=== PATIENT | male | born 1940 | race Caucasian/White ===

== ENCOUNTER 2021-04-15 15:52 | Inpatient (IN) | payer MEDICARE ==
[~2021-04-15] VITALS: Ht 185.4 cm; Wt 90.3 kg
[2021-04-15 17:30] VITALS: BP 108/63
[2021-04-15] MEDS ORDERED: CYCLOBENZAPRINE HCL 10 MG TABLET PO PRN (18:00)
[2021-04-15] MEDS ORDERED: GABAPENTIN 300 MG CAPSULE PO PRN (18:00)
[2021-04-15] MEDS: DOCUSATE SODIUM 100 MG CAPSULE PO SCH (20:09)
[2021-04-15] MEDS: PREGABALIN 75 MG CAPSULE PO SCH (20:09)
[2021-04-15] MEDS: SIMVASTATIN 40 MG TABLET PO SCH (20:10)
[2021-04-15] MEDS: SENNA 187 MG TABLET PO SCH (20:10)
[2021-04-15] MEDS: ACETAMINOPHEN 325 MG TABLET PO SCH (22:00)
[2021-04-16 02:45] VITALS: BP 152/82
[2021-04-16] MEDS: OxyCODONE HCL 10 MG IR TABLET PO PRN ×2 (02:45→09:52)
[2021-04-16] MEDS: ACETAMINOPHEN 325 MG TABLET PO SCH ×3 (06:10→21:18)
[2021-04-16] MEDS: PSYLLIUM SEED ORANGE SF 5.8 GM/PACKET PO SCH (08:46)
[2021-04-16] MEDS: POLYETHYLENE GLYCOL 3350 17 GM PACKET PO SCH (08:46)
[2021-04-16] MEDS: ASPIRIN 81 MG CHEWABLE TABLET PO SCH (08:46)
[2021-04-16] MEDS: PREGABALIN 75 MG CAPSULE PO SCH ×2 (08:47→21:18)
[2021-04-16] MEDS: MULTIVITAMINS WITH MINERALS, THERAPEUTIC TABLET PO SCH (08:48)
[2021-04-16] MEDS: SERTRALINE HCL 100 MG TABLET PO SCH (08:48)
[2021-04-16] MEDS: DOCUSATE SODIUM 100 MG CAPSULE PO SCH ×2 (08:49→21:18)
[2021-04-16] MEDS: BuPROPion HCL XL 150 MG ER TABLET PO SCH (08:49)
[2021-04-16 09:52] VITALS: BP 121/57
[2021-04-16] MEDS: AmLODIPine BESYLATE 5 MG TABLET PO SCH (09:55)
[2021-04-16] MEDS: LOSARTAN POTASSIUM 50 MG TABLET PO SCH (09:56)
[2021-04-16 12:01] LABS: HEMATOCRIT 26.8 % (41-53); HEMOGLOBIN 8.9 g/dL (13.5-17.5); MEAN CORPUSCULAR VOLUME 94 fL (80-100); RED BLOOD CELL COUNT(AUTO) 2.86 MIL/uL (4.50-5.90)
[2021-04-16 12:02] LABS: BASOPHILS % (AUTO) 0.7 % (0.0-2.0); EOSINOPHILS % (AUTO) 2.6 % (1.0-6.0); LYMPHOCYTES # (AUTO) 0.9 K/uL (1.0-4.8); LYMPHOCYTES % (AUTO) 12.2 % (22.0-44.0); MEAN CORPUSCULAR HEMOGLOBIN 31.3 pg (26.0-34.0); MEAN CORPUSCULAR HGB CONC 33.3 G/dL (31.0-37.0); MONOCYTES # (AUTO) 0.6 K/uL (0.1-1.0); MONOCYTES % (AUTO) 8.5 % (2.0-9.0); NEUTROPHILS # (AUTO) 5.4 K/uL (1.8-7.7); PLATELET COUNT (AUTO) 261 K/uL (150-450); RED CELL DISTRIBUTION WIDTH 13.7 % (11.5-14.5)
[2021-04-16 12:15] VITALS: BP 96/54
[2021-04-16 12:21] LABS: ALANINE AMINOTRANSFERASE 29 U/L (12-78); ALBUMIN 2.6 g/dL (3.4-5.0); ALKALINE PHOSPHATASE 83 U/L (46-116); ANION GAP 6 mmol/L (8-16); ASPARTATE AMINOTRANSFERASE 31 U/L (15-37); BILIRUBIN,TOTAL 0.6 mg/dL (0.1-1.0); CALCIUM, TOTAL 8.3 mg/dL (8.8-10.5); CARBON DIOXIDE 26 mmol/L (22-29); CHLORIDE 106 mmol/L (98-107); CREATININE 0.89 mg/dL (0.60-1.30); GLUCOSE,RANDOM 85 mg/dL (70-110); POTASSIUM 3.8 mmol/L (3.5-5.1); SODIUM SERUM 138 mmol/L (136-145); TOTAL PROTEIN, SERUM 5.7 g/dL (6.4-8.2); UREA NITROGEN, BLOOD 17 mg/dL (7-18)
[2021-04-16 12:25] LABS: GLOMERULAR FILTR. RATE CALC > 60 mL/min (>60)
[2021-04-16 12:30] VITALS: BP 114/52
[2021-04-16 16:41] VITALS: BP 105/50
[2021-04-16] MEDS: SENNA 187 MG TABLET PO SCH (21:18)
[2021-04-16] MEDS: SIMVASTATIN 40 MG TABLET PO SCH (21:18)
[2021-04-17 00:30] VITALS: BP 153/86
[2021-04-17] MEDS: ACETAMINOPHEN 325 MG TABLET PO SCH ×3 (05:13→21:12)
[2021-04-17 08:47] VITALS: BP 152/91
[2021-04-17] MEDS: POLYETHYLENE GLYCOL 3350 17 GM PACKET PO SCH (09:00)
[2021-04-17] MEDS: LOSARTAN POTASSIUM 50 MG TABLET PO SCH (09:12)
[2021-04-17] MEDS: ENOXAPARIN SODIUM 40 MG/0.4 ML PF SYRINGE SQ SCH (09:12)
[2021-04-17] MEDS: PSYLLIUM SEED ORANGE SF 5.8 GM/PACKET PO SCH (09:12)
[2021-04-17] MEDS: DOCUSATE SODIUM 100 MG CAPSULE PO SCH ×2 (09:12→20:35)
[2021-04-17] MEDS: MULTIVITAMINS WITH MINERALS, THERAPEUTIC TABLET PO SCH (09:13)
[2021-04-17] MEDS: SERTRALINE HCL 100 MG TABLET PO SCH (09:13)
[2021-04-17] MEDS: AmLODIPine BESYLATE 5 MG TABLET PO SCH (09:13)
[2021-04-17] MEDS: ASPIRIN 81 MG CHEWABLE TABLET PO SCH (09:13)
[2021-04-17] MEDS: PREGABALIN 75 MG CAPSULE PO SCH ×2 (09:13→20:35)
[2021-04-17] MEDS: BuPROPion HCL XL 150 MG ER TABLET PO SCH (09:13)
[2021-04-17] MEDS: OxyCODONE HCL 5 MG IR TABLET PO PRN (10:06)
[2021-04-17 16:36] VITALS: BP 119/61
[2021-04-17] MEDS: SIMVASTATIN 40 MG TABLET PO SCH (20:35)
[2021-04-17] MEDS: SENNA 187 MG TABLET PO SCH (20:35)
[2021-04-18 03:30] VITALS: BP 128/67
[2021-04-18] MEDS: ACETAMINOPHEN 325 MG TABLET PO SCH ×3 (05:54→21:00)
[2021-04-18] MEDS: OxyCODONE HCL 10 MG IR TABLET PO PRN (07:36)
[2021-04-18 08:00] VITALS: BP 143/67
[2021-04-18] MEDS: LOSARTAN POTASSIUM 50 MG TABLET PO SCH (10:05)
[2021-04-18] MEDS: ASPIRIN 81 MG CHEWABLE TABLET PO SCH (10:05)
[2021-04-18] MEDS: DOCUSATE SODIUM 100 MG CAPSULE PO SCH ×2 (10:05→20:51)
[2021-04-18] MEDS: MULTIVITAMINS WITH MINERALS, THERAPEUTIC TABLET PO SCH (10:06)
[2021-04-18] MEDS: POLYETHYLENE GLYCOL 3350 17 GM PACKET PO SCH (10:06)
[2021-04-18] MEDS: SERTRALINE HCL 100 MG TABLET PO SCH (10:06)
[2021-04-18] MEDS: BuPROPion HCL XL 150 MG ER TABLET PO SCH (10:06)
[2021-04-18] MEDS: AmLODIPine BESYLATE 5 MG TABLET PO SCH (10:06)
[2021-04-18] MEDS: PSYLLIUM SEED ORANGE SF 5.8 GM/PACKET PO SCH (10:06)
[2021-04-18] MEDS: PREGABALIN 75 MG CAPSULE PO SCH ×2 (10:06→20:52)
[2021-04-18] MEDS: ENOXAPARIN SODIUM 40 MG/0.4 ML PF SYRINGE SQ SCH (10:07)
[2021-04-18 16:10] VITALS: BP 112/56
[2021-04-18] MEDS: SIMVASTATIN 40 MG TABLET PO SCH (20:52)
[2021-04-18] MEDS: SENNA 187 MG TABLET PO SCH (20:52)
[2021-04-19] MEDS: OxyCODONE HCL 5 MG IR TABLET PO PRN (02:55)
[2021-04-19 03:00] VITALS: BP 157/85
[2021-04-19] MEDS ORDERED: ASPI-1450 PO (03:21)
[2021-04-19] MEDS ORDERED: LOSA50TA37 PO (03:21)
[2021-04-19] MEDS ORDERED: PREG75 PO (03:21)
[2021-04-19] MEDS ORDERED: SERT-162 PO (03:21)
[2021-04-19] MEDS ORDERED: SIMV-261 PO (03:21)
[2021-04-19] MEDS ORDERED: AMLO-257 PO (03:21)
[2021-04-19] MEDS ORDERED: METO25 PO (03:21)
[2021-04-19] MEDS: ACETAMINOPHEN 325 MG TABLET PO SCH ×4 (05:23→21:43)
[2021-04-19] MEDS: OxyCODONE HCL 10 MG IR TABLET PO PRN (07:18)
[2021-04-19 07:30] VITALS: BP 160/78
[2021-04-19] MEDS: ENOXAPARIN SODIUM 40 MG/0.4 ML PF SYRINGE SQ SCH (08:18)
[2021-04-19] MEDS: LOSARTAN POTASSIUM 50 MG TABLET PO SCH (08:19)
[2021-04-19] MEDS: MULTIVITAMINS WITH MINERALS, THERAPEUTIC TABLET PO SCH (08:19)
[2021-04-19] MEDS: DOCUSATE SODIUM 100 MG CAPSULE PO SCH ×2 (08:19→20:36)
[2021-04-19] MEDS: PREGABALIN 75 MG CAPSULE PO SCH ×2 (08:19→20:41)
[2021-04-19] MEDS: SERTRALINE HCL 100 MG TABLET PO SCH (08:19)
[2021-04-19] MEDS: AmLODIPine BESYLATE 5 MG TABLET PO SCH (08:20)
[2021-04-19] MEDS: ASPIRIN 81 MG CHEWABLE TABLET PO SCH (08:21)
[2021-04-19] MEDS: PSYLLIUM SEED ORANGE SF 5.8 GM/PACKET PO SCH (08:21)
[2021-04-19 09:00] VITALS: BP 89/51
[2021-04-19] MEDS: POLYETHYLENE GLYCOL 3350 17 GM PACKET PO SCH (09:00)
[2021-04-19] MEDS: BuPROPion HCL XL 150 MG ER TABLET PO SCH (09:43)
[2021-04-19 10:30] VITALS: BP 109/57
[2021-04-19 16:00] VITALS: BP 130/64
[2021-04-19] MEDS: SENNA 187 MG TABLET PO SCH (20:36)
[2021-04-19] MEDS: ETHYL ALCOHOL 62% ANTISEPTIC NASAL INHALANT 0.6 ML AMPUL NASAL SCH (20:44)
[2021-04-19] MEDS: SIMVASTATIN 40 MG TABLET PO SCH (21:43)
[2021-04-20 03:18] VITALS: BP 148/62
[2021-04-20] MEDS: OxyCODONE HCL 10 MG IR TABLET PO PRN ×2 (03:18→08:41)
[2021-04-20] MEDS: ACETAMINOPHEN 325 MG TABLET PO SCH ×3 (05:46→20:43)
[2021-04-20] MEDS: BISACODYL 10 MG RECTAL RECTAL SUPPOSITORY PR PRN (05:46)
[2021-04-20] MEDS: ETHYL ALCOHOL 62% ANTISEPTIC NASAL INHALANT 0.6 ML AMPUL NASAL SCH ×2 (08:38→20:37)
[2021-04-20] MEDS: SERTRALINE HCL 100 MG TABLET PO SCH (08:39)
[2021-04-20] MEDS: BuPROPion HCL XL 150 MG ER TABLET PO SCH (08:39)
[2021-04-20] MEDS: LOSARTAN POTASSIUM 50 MG TABLET PO SCH (08:39)
[2021-04-20] MEDS: PREGABALIN 75 MG CAPSULE PO SCH ×2 (08:40→20:39)
[2021-04-20] MEDS: ENOXAPARIN SODIUM 40 MG/0.4 ML PF SYRINGE SQ SCH (08:40)
[2021-04-20] MEDS: MULTIVITAMINS WITH MINERALS, THERAPEUTIC TABLET PO SCH (08:40)
[2021-04-20] MEDS: ASPIRIN 81 MG CHEWABLE TABLET PO SCH (08:40)
[2021-04-20 08:41] VITALS: BP 123/73
[2021-04-20] MEDS: DOCUSATE SODIUM 100 MG CAPSULE PO SCH ×2 (08:47→20:39)
[2021-04-20] MEDS: PSYLLIUM SEED ORANGE SF 5.8 GM/PACKET PO SCH (08:48)
[2021-04-20] MEDS: POLYETHYLENE GLYCOL 3350 17 GM PACKET PO SCH (08:48)
[2021-04-20 17:00] VITALS: BP 119/64
[2021-04-20] MEDS: SENNA 187 MG TABLET PO SCH (20:39)
[2021-04-20] MEDS: SIMVASTATIN 40 MG TABLET PO SCH (20:40)
[2021-04-20] MEDS: METOPROLOL SUCCINATE 25 MG ER TABLET PO SCH (20:49)
[2021-04-21 00:34] VITALS: BP 146/76
[2021-04-21] MEDS: OxyCODONE HCL 10 MG IR TABLET PO PRN ×3 (04:51→23:23)
[2021-04-21] MEDS: ACETAMINOPHEN 325 MG TABLET PO SCH ×3 (05:44→21:07)
[2021-04-21 07:05] VITALS: BP 154/79
[2021-04-21] MEDS: ENOXAPARIN SODIUM 40 MG/0.4 ML PF SYRINGE SQ SCH (07:31)
[2021-04-21] MEDS: LOSARTAN POTASSIUM 50 MG TABLET PO SCH (07:31)
[2021-04-21] MEDS: PSYLLIUM SEED ORANGE SF 5.8 GM/PACKET PO SCH (07:31)
[2021-04-21] MEDS: PREGABALIN 75 MG CAPSULE PO SCH ×2 (07:31→21:07)
[2021-04-21] MEDS: ETHYL ALCOHOL 62% ANTISEPTIC NASAL INHALANT 0.6 ML AMPUL NASAL SCH ×2 (07:31→21:06)
[2021-04-21] MEDS: DOCUSATE SODIUM 100 MG CAPSULE PO SCH ×2 (07:32→21:06)
[2021-04-21] MEDS: POLYETHYLENE GLYCOL 3350 17 GM PACKET PO SCH (07:32)
[2021-04-21] MEDS: ASPIRIN 81 MG CHEWABLE TABLET PO SCH (07:33)
[2021-04-21] MEDS: SERTRALINE HCL 100 MG TABLET PO SCH (07:33)
[2021-04-21] MEDS: MULTIVITAMINS WITH MINERALS, THERAPEUTIC TABLET PO SCH (07:33)
[2021-04-21] MEDS: BuPROPion HCL XL 150 MG ER TABLET PO SCH (07:33)
[2021-04-21 08:52] VITALS: BP 106/57
[2021-04-21 16:40] VITALS: BP 110/59
[2021-04-21] MEDS: OxyCODONE HCL 5 MG IR TABLET PO PRN (18:21)
[2021-04-21] MEDS: SENNA 187 MG TABLET PO SCH (21:05)
[2021-04-21] MEDS: MELATONIN 5 MG TABLET PO PRN (21:06)
[2021-04-21] MEDS: SIMVASTATIN 40 MG TABLET PO SCH (21:06)
[2021-04-21] MEDS: METOPROLOL SUCCINATE 25 MG ER TABLET PO SCH (21:07)
[2021-04-22 00:18] VITALS: BP 149/80
[2021-04-22] MEDS: OxyCODONE HCL 10 MG IR TABLET PO PRN ×3 (03:22→23:25)
[2021-04-22] MEDS: BISACODYL 10 MG RECTAL RECTAL SUPPOSITORY PR PRN (05:42)
[2021-04-22] MEDS: ACETAMINOPHEN 325 MG TABLET PO SCH ×3 (05:42→21:04)
[2021-04-22 08:07] VITALS: BP 157/68
[2021-04-22] MEDS: DOCUSATE SODIUM 100 MG CAPSULE PO SCH ×2 (08:07→20:29)
[2021-04-22] MEDS: ASPIRIN 81 MG CHEWABLE TABLET PO SCH (08:07)
[2021-04-22] MEDS: SERTRALINE HCL 100 MG TABLET PO SCH (08:07)
[2021-04-22] MEDS: PREGABALIN 75 MG CAPSULE PO SCH (08:07)
[2021-04-22] MEDS: MULTIVITAMINS WITH MINERALS, THERAPEUTIC TABLET PO SCH (08:07)
[2021-04-22] MEDS: ETHYL ALCOHOL 62% ANTISEPTIC NASAL INHALANT 0.6 ML AMPUL NASAL SCH ×2 (08:08→20:28)
[2021-04-22] MEDS: POLYETHYLENE GLYCOL 3350 17 GM PACKET PO SCH (08:08)
[2021-04-22] MEDS: BuPROPion HCL XL 150 MG ER TABLET PO SCH (08:08)
[2021-04-22] MEDS: PSYLLIUM SEED ORANGE SF 5.8 GM/PACKET PO SCH (08:08)
[2021-04-22] MEDS: ENOXAPARIN SODIUM 40 MG/0.4 ML PF SYRINGE SQ SCH (08:08)
[2021-04-22] MEDS: LOSARTAN POTASSIUM 50 MG TABLET PO SCH (08:08)
[2021-04-22] MEDS: GABAPENTIN 300 MG CAPSULE PO SCH ×2 (15:03→20:29)
[2021-04-22 16:12] VITALS: BP 112/54
[2021-04-22] MEDS: METOPROLOL SUCCINATE 25 MG ER TABLET PO SCH (20:29)
[2021-04-22] MEDS: SIMVASTATIN 40 MG TABLET PO SCH (20:29)
[2021-04-22] MEDS: SENNA 187 MG TABLET PO SCH (20:29)
[2021-04-22] MEDS: MELATONIN 5 MG TABLET PO PRN (20:29)
[2021-04-22 20:45] VITALS: BP 124/58
[2021-04-22 23:25] VITALS: BP 124/73
[2021-04-23] MEDS: ACETAMINOPHEN 325 MG TABLET PO SCH ×3 (05:57→21:16)
[2021-04-23 07:32] VITALS: BP 165/82
[2021-04-23] MEDS: OxyCODONE HCL 10 MG IR TABLET PO PRN ×2 (07:32→23:06)
[2021-04-23 08:32] VITALS: BP 116/78
[2021-04-23] MEDS: PSYLLIUM SEED ORANGE SF 5.8 GM/PACKET PO SCH ×2 (09:00→09:12)
[2021-04-23] MEDS: BuPROPion HCL XL 150 MG ER TABLET PO SCH (09:11)
[2021-04-23] MEDS: SERTRALINE HCL 100 MG TABLET PO SCH (09:11)
[2021-04-23] MEDS: ENOXAPARIN SODIUM 40 MG/0.4 ML PF SYRINGE SQ SCH (09:11)
[2021-04-23] MEDS: ASPIRIN 81 MG CHEWABLE TABLET PO SCH (09:11)
[2021-04-23] MEDS: LOSARTAN POTASSIUM 50 MG TABLET PO SCH (09:11)
[2021-04-23] MEDS: MULTIVITAMINS WITH MINERALS, THERAPEUTIC TABLET PO SCH (09:11)
[2021-04-23] MEDS: GABAPENTIN 300 MG CAPSULE PO SCH ×3 (09:12→21:17)
[2021-04-23] MEDS: ETHYL ALCOHOL 62% ANTISEPTIC NASAL INHALANT 0.6 ML AMPUL NASAL SCH ×2 (09:12→21:18)
[2021-04-23] MEDS: DOCUSATE SODIUM 100 MG CAPSULE PO SCH ×2 (09:16→21:16)
[2021-04-23] MEDS: POLYETHYLENE GLYCOL 3350 17 GM PACKET PO SCH (09:16)
[2021-04-23 16:14] VITALS: BP 123/65
[2021-04-23 21:00] VITALS: BP 169/78
[2021-04-23] MEDS: SIMVASTATIN 40 MG TABLET PO SCH (21:16)
[2021-04-23] MEDS: METOPROLOL SUCCINATE 25 MG ER TABLET PO SCH (21:17)
[2021-04-23] MEDS: SENNA 187 MG TABLET PO SCH (21:17)
[2021-04-23] MEDS: MELATONIN 5 MG TABLET PO PRN (21:21)
[2021-04-24] VITALS (7 sets, daily range): BP systolic 136–190; BP diastolic 59–94
[2021-04-24] MEDS: ACETAMINOPHEN 325 MG TABLET PO SCH ×3 (05:33→21:11)
[2021-04-24] MEDS: OxyCODONE HCL 10 MG IR TABLET PO PRN ×2 (08:11→23:29)
[2021-04-24] MEDS: ENOXAPARIN SODIUM 40 MG/0.4 ML PF SYRINGE SQ SCH (08:48)
[2021-04-24] MEDS: LOSARTAN POTASSIUM 50 MG TABLET PO SCH (08:48)
[2021-04-24] MEDS: SERTRALINE HCL 100 MG TABLET PO SCH (08:48)
[2021-04-24] MEDS: ETHYL ALCOHOL 62% ANTISEPTIC NASAL INHALANT 0.6 ML AMPUL NASAL SCH ×2 (08:48→20:07)
[2021-04-24] MEDS: BuPROPion HCL XL 150 MG ER TABLET PO SCH (08:48)
[2021-04-24] MEDS: MULTIVITAMINS WITH MINERALS, THERAPEUTIC TABLET PO SCH (08:49)
[2021-04-24] MEDS: ASPIRIN 81 MG CHEWABLE TABLET PO SCH (08:49)
[2021-04-24] MEDS: GABAPENTIN 300 MG CAPSULE PO SCH ×3 (08:52→20:08)
[2021-04-24] MEDS: POLYETHYLENE GLYCOL 3350 17 GM PACKET PO SCH ×2 (08:52→09:00)
[2021-04-24] MEDS: PSYLLIUM SEED ORANGE SF 5.8 GM/PACKET PO SCH (09:00)
[2021-04-24] MEDS: DOCUSATE SODIUM 100 MG CAPSULE PO SCH ×2 (09:00→20:07)
[2021-04-24 09:16] LABS: BASOPHILS % (AUTO) 1.2 % (0.0-2.0); EOSINOPHILS % (AUTO) 2.2 % (1.0-6.0); HEMATOCRIT 32.3 % (41-53); HEMOGLOBIN 10.8 g/dL (13.5-17.5); LYMPHOCYTES # (AUTO) 0.7 K/uL (1.0-4.8); LYMPHOCYTES % (AUTO) 9.6 % (22.0-44.0); MEAN CORPUSCULAR HGB CONC 33.3 G/dL (31.0-37.0); MEAN CORPUSCULAR VOLUME 93 fL (80-100); MONOCYTES # (AUTO) 0.5 K/uL (0.1-1.0); MONOCYTES % (AUTO) 6.8 % (2.0-9.0); NEUTROPHILS # (AUTO) 5.8 K/uL (1.8-7.7); NEUTROPHILS % (AUTO) 80.2 % (40.0-70.0); PLATELET COUNT (AUTO) 501 K/uL (150-450); RED BLOOD CELL COUNT(AUTO) 3.47 MIL/uL (4.50-5.90); RED CELL DISTRIBUTION WIDTH 14.2 % (11.5-14.5)
[2021-04-24 09:26] LABS: ANION GAP 10 mmol/L (8-16); CALCIUM, TOTAL 9.4 mg/dL (8.8-10.5); CARBON DIOXIDE 25 mmol/L (22-29); CHLORIDE 103 mmol/L (98-107); GLUCOSE,RANDOM 95 mg/dL (70-110); POTASSIUM 4.2 mmol/L (3.5-5.1); SODIUM SERUM 138 mmol/L (136-145); UREA NITROGEN, BLOOD 18 mg/dL (7-18)
[2021-04-24 09:30] LABS: GLOMERULAR FILTR. RATE CALC > 60 mL/min (>60)
[2021-04-24] MEDS: SIMVASTATIN 40 MG TABLET PO SCH (20:07)
[2021-04-24] MEDS: SENNA 187 MG TABLET PO SCH (20:07)
[2021-04-24] MEDS: METOPROLOL SUCCINATE 25 MG ER TABLET PO SCH (20:07)
[2021-04-24] MEDS: MELATONIN 5 MG TABLET PO PRN (23:29)
[2021-04-25] VITALS (8 sets, daily range): BP systolic 120–180; BP diastolic 67–92
[2021-04-25] MEDS: ACETAMINOPHEN 325 MG TABLET PO SCH ×3 (05:47→22:04)
[2021-04-25] MEDS: ENOXAPARIN SODIUM 40 MG/0.4 ML PF SYRINGE SQ SCH (09:08)
[2021-04-25] MEDS: POLYETHYLENE GLYCOL 3350 17 GM PACKET PO SCH (09:08)
[2021-04-25] MEDS: SERTRALINE HCL 100 MG TABLET PO SCH (09:09)
[2021-04-25] MEDS: ASPIRIN 81 MG CHEWABLE TABLET PO SCH (09:09)
[2021-04-25] MEDS: PSYLLIUM SEED ORANGE SF 5.8 GM/PACKET PO SCH (09:09)
[2021-04-25] MEDS: BuPROPion HCL XL 150 MG ER TABLET PO SCH (09:09)
[2021-04-25] MEDS: DOCUSATE SODIUM 100 MG CAPSULE PO SCH ×2 (09:09→20:13)
[2021-04-25] MEDS: LOSARTAN POTASSIUM 50 MG TABLET PO SCH (09:10)
[2021-04-25] MEDS: MULTIVITAMINS WITH MINERALS, THERAPEUTIC TABLET PO SCH (09:10)
[2021-04-25] MEDS: GABAPENTIN 300 MG CAPSULE PO SCH ×3 (09:10→20:13)
[2021-04-25] MEDS: ETHYL ALCOHOL 62% ANTISEPTIC NASAL INHALANT 0.6 ML AMPUL NASAL SCH ×2 (09:23→20:13)
[2021-04-25] MEDS: OxyCODONE HCL 5 MG IR TABLET PO PRN (15:09)
[2021-04-25] MEDS: METOPROLOL SUCCINATE 25 MG ER TABLET PO SCH (20:13)
[2021-04-25] MEDS: SENNA 187 MG TABLET PO SCH (20:13)
[2021-04-25] MEDS: SIMVASTATIN 40 MG TABLET PO SCH (20:13)
[2021-04-25] MEDS: OxyCODONE HCL 10 MG IR TABLET PO PRN (23:32)
[2021-04-25] MEDS: MELATONIN 5 MG TABLET PO PRN (23:32)
[2021-04-26] MEDS ORDERED: GABA-1181 PO (04:12)
[2021-04-26] MEDS ORDERED: BUPR-93 PO (04:12)
[2021-04-26] MEDS ORDERED: BUPR-121 PO (04:12)
[2021-04-26] MEDS ORDERED: METO25XL PO (04:13)
[2021-04-26] MEDS ORDERED: DOCU-270 PO (04:15)
[2021-04-26] MEDS ORDERED: MULT-413 PO (04:15)
[2021-04-26] MEDS: ACETAMINOPHEN 325 MG TABLET PO SCH (06:02)
[2021-04-26 08:01] VITALS: BP 149/90
[2021-04-26] MEDS: POLYETHYLENE GLYCOL 3350 17 GM PACKET PO SCH (08:45)
[2021-04-26] MEDS: MULTIVITAMINS WITH MINERALS, THERAPEUTIC TABLET PO SCH (08:45)
[2021-04-26] MEDS: ENOXAPARIN SODIUM 40 MG/0.4 ML PF SYRINGE SQ SCH (08:45)
[2021-04-26] MEDS: ETHYL ALCOHOL 62% ANTISEPTIC NASAL INHALANT 0.6 ML AMPUL NASAL SCH ×2 (08:46→21:10)
[2021-04-26] MEDS: ASPIRIN 81 MG CHEWABLE TABLET PO SCH (08:46)
[2021-04-26] MEDS: BuPROPion HCL XL 150 MG ER TABLET PO SCH (08:46)
[2021-04-26] MEDS: GABAPENTIN 300 MG CAPSULE PO SCH ×3 (08:46→21:09)
[2021-04-26] MEDS: PSYLLIUM SEED ORANGE SF 5.8 GM/PACKET PO SCH (08:46)
[2021-04-26] MEDS: LOSARTAN POTASSIUM 50 MG TABLET PO SCH (08:46)
[2021-04-26] MEDS: DOCUSATE SODIUM 100 MG CAPSULE PO SCH ×2 (08:46→21:10)
[2021-04-26] MEDS: SERTRALINE HCL 100 MG TABLET PO SCH (08:47)
[2021-04-26] MEDS: OxyCODONE HCL 10 MG IR TABLET PO PRN (09:04)
[2021-04-26] MEDS ORDERED: ACETAMINOPHEN 325 MG TABLET PO PRN (14:00)
[2021-04-26 16:33] VITALS: BP 104/51
[2021-04-26 21:00] VITALS: BP 125/69
[2021-04-26] MEDS ORDERED: GABAPENTIN 400 MG CAPSULE PO SCH (21:00)
[2021-04-26] MEDS ORDERED: GABAPENTIN 300 MG CAPSULE PO SCH (21:00)
[2021-04-26] MEDS: SENNA 187 MG TABLET PO SCH (21:09)
[2021-04-26] MEDS: SIMVASTATIN 40 MG TABLET PO SCH (21:09)
[2021-04-26] MEDS: METOPROLOL SUCCINATE 25 MG ER TABLET PO SCH (21:10)
[2021-04-27] MEDS: GABAPENTIN 300 MG CAPSULE PO SCH ×4 (01:42→20:22)
[2021-04-27 02:13] VITALS: BP 151/84
[2021-04-27] MEDS: GABAPENTIN 300 MG CAPSULE PO PRN (02:13)
[2021-04-27] MEDS: OxyCODONE HCL 10 MG IR TABLET PO PRN ×2 (03:19→09:01)
[2021-04-27] MEDS: BuPROPion HCL XL 150 MG ER TABLET PO SCH (08:15)
[2021-04-27] MEDS: ASPIRIN 81 MG CHEWABLE TABLET PO SCH (08:15)
[2021-04-27] MEDS: MULTIVITAMINS WITH MINERALS, THERAPEUTIC TABLET PO SCH (08:15)
[2021-04-27] MEDS: DOCUSATE SODIUM 100 MG CAPSULE PO SCH ×2 (08:15→20:21)
[2021-04-27] MEDS: PSYLLIUM SEED ORANGE SF 5.8 GM/PACKET PO SCH (08:16)
[2021-04-27] MEDS: LOSARTAN POTASSIUM 50 MG TABLET PO SCH (08:16)
[2021-04-27] MEDS: ENOXAPARIN SODIUM 40 MG/0.4 ML PF SYRINGE SQ SCH (08:16)
[2021-04-27] MEDS: SERTRALINE HCL 100 MG TABLET PO SCH (08:16)
[2021-04-27] MEDS: POLYETHYLENE GLYCOL 3350 17 GM PACKET PO SCH (08:16)
[2021-04-27] MEDS: ETHYL ALCOHOL 62% ANTISEPTIC NASAL INHALANT 0.6 ML AMPUL NASAL SCH ×2 (08:25→20:21)
[2021-04-27 09:01] VITALS: BP 127/71
[2021-04-27 16:11] VITALS: BP 118/63
[2021-04-27] MEDS: SENNA 187 MG TABLET PO SCH (20:21)
[2021-04-27] MEDS: OxyCODONE HCL 10 MG ER TABLET PO SCH (20:21)
[2021-04-27] MEDS: METOPROLOL SUCCINATE 25 MG ER TABLET PO SCH (20:24)
[2021-04-27] MEDS: SIMVASTATIN 40 MG TABLET PO SCH (20:24)
[2021-04-27 20:31] VITALS: BP 110/49
[2021-04-27] MEDS: HYDROCORTISONE 1% 30 GM CREAM TP PRN (21:25)
[2021-04-28] MEDS: MELATONIN 5 MG TABLET PO PRN ×2 (00:19→23:26)
[2021-04-28] MEDS: OxyCODONE HCL 10 MG IR TABLET PO PRN ×3 (00:19→23:26)
[2021-04-28 00:27] VITALS: BP 160/87
[2021-04-28] MEDS: PSYLLIUM SEED ORANGE SF 5.8 GM/PACKET PO SCH (07:33)
[2021-04-28] MEDS: POLYETHYLENE GLYCOL 3350 17 GM PACKET PO SCH (07:33)
[2021-04-28] MEDS: MULTIVITAMINS WITH MINERALS, THERAPEUTIC TABLET PO SCH (07:36)
[2021-04-28] MEDS: GABAPENTIN 300 MG CAPSULE PO SCH ×3 (07:36→20:18)
[2021-04-28] MEDS: LOSARTAN POTASSIUM 50 MG TABLET PO SCH (07:36)
[2021-04-28] MEDS: ENOXAPARIN SODIUM 40 MG/0.4 ML PF SYRINGE SQ SCH (07:36)
[2021-04-28] MEDS: ETHYL ALCOHOL 62% ANTISEPTIC NASAL INHALANT 0.6 ML AMPUL NASAL SCH ×2 (07:36→20:16)
[2021-04-28] MEDS: DOCUSATE SODIUM 100 MG CAPSULE PO SCH ×2 (07:37→20:18)
[2021-04-28] MEDS: ASPIRIN 81 MG CHEWABLE TABLET PO SCH (07:41)
[2021-04-28] MEDS: SERTRALINE HCL 100 MG TABLET PO SCH (07:41)
[2021-04-28] MEDS: OxyCODONE HCL 10 MG ER TABLET PO SCH ×2 (07:41→20:18)
[2021-04-28] MEDS: BuPROPion HCL XL 150 MG ER TABLET PO SCH (07:41)
[2021-04-28 13:06] VITALS: BP 144/89
[2021-04-28 16:14] VITALS: BP 100/57
[2021-04-28] MEDS: METOPROLOL SUCCINATE 25 MG ER TABLET PO SCH (20:18)
[2021-04-28] MEDS: SIMVASTATIN 40 MG TABLET PO SCH (20:18)
[2021-04-28] MEDS: SENNA 187 MG TABLET PO SCH (20:18)
[2021-04-28] MEDS: HYDROCORTISONE 1% 30 GM CREAM TP PRN (20:29)
[2021-04-28 23:26] VITALS: BP 139/65
[2021-04-29] MEDS: GABAPENTIN 300 MG CAPSULE PO PRN (04:26)
[2021-04-29 08:00] VITALS: BP 134/81
[2021-04-29] MEDS: PSYLLIUM SEED ORANGE SF 5.8 GM/PACKET PO SCH (08:35)
[2021-04-29] MEDS: ASPIRIN 81 MG CHEWABLE TABLET PO SCH (08:35)
[2021-04-29] MEDS: DOCUSATE SODIUM 100 MG CAPSULE PO SCH ×2 (08:35→20:46)
[2021-04-29] MEDS: GABAPENTIN 300 MG CAPSULE PO SCH ×3 (08:35→20:46)
[2021-04-29] MEDS: LOSARTAN POTASSIUM 50 MG TABLET PO SCH (08:35)
[2021-04-29] MEDS: POLYETHYLENE GLYCOL 3350 17 GM PACKET PO SCH (08:35)
[2021-04-29] MEDS: MULTIVITAMINS WITH MINERALS, THERAPEUTIC TABLET PO SCH (08:35)
[2021-04-29] MEDS: SERTRALINE HCL 100 MG TABLET PO SCH (08:36)
[2021-04-29] MEDS: OxyCODONE HCL 10 MG ER TABLET PO SCH ×2 (08:36→20:46)
[2021-04-29] MEDS: ETHYL ALCOHOL 62% ANTISEPTIC NASAL INHALANT 0.6 ML AMPUL NASAL SCH ×2 (09:00→20:41)
[2021-04-29] MEDS: ENOXAPARIN SODIUM 40 MG/0.4 ML PF SYRINGE SQ SCH (09:08)
[2021-04-29] MEDS: BuPROPion HCL XL 150 MG ER TABLET PO SCH (09:08)
[2021-04-29 16:06] VITALS: BP 118/59
[2021-04-29] MEDS: SENNA 187 MG TABLET PO SCH (20:46)
[2021-04-29] MEDS: SIMVASTATIN 40 MG TABLET PO SCH (20:46)
[2021-04-29] MEDS: METOPROLOL SUCCINATE 25 MG ER TABLET PO SCH (20:46)
[2021-04-29] MEDS: MELATONIN 5 MG TABLET PO PRN (20:47)
[2021-04-29] MEDS: HYDROCORTISONE 1% 30 GM CREAM TP PRN (20:48)
[2021-04-29 20:49] VITALS: BP 132/80
[2021-04-30] MEDS ORDERED: DOCU-270 PO (03:05)
[2021-04-30] MEDS ORDERED: PSYL575P22 PO (03:05)
[2021-04-30] MEDS ORDERED: GABA-1181 PO (03:05)
[2021-04-30] MEDS ORDERED: POLY17PO47 PO (03:05)
[2021-04-30] MEDS ORDERED: SENN8.6T90 PO (03:10)
[2021-04-30 03:45] VITALS: BP 150/83
[2021-04-30] MEDS: GABAPENTIN 300 MG CAPSULE PO PRN (03:45)
[2021-04-30] MEDS: OxyCODONE HCL 10 MG IR TABLET PO PRN (05:56)
[2021-04-30] MEDS: ETHYL ALCOHOL 62% ANTISEPTIC NASAL INHALANT 0.6 ML AMPUL NASAL SCH (08:35)
[2021-04-30] MEDS: BuPROPion HCL XL 150 MG ER TABLET PO SCH (08:37)
[2021-04-30] MEDS: GABAPENTIN 300 MG CAPSULE PO SCH (08:37)
[2021-04-30] MEDS: ASPIRIN 81 MG CHEWABLE TABLET PO SCH (08:37)
[2021-04-30] MEDS: MULTIVITAMINS WITH MINERALS, THERAPEUTIC TABLET PO SCH (08:37)
[2021-04-30] MEDS: DOCUSATE SODIUM 100 MG CAPSULE PO SCH (08:37)
[2021-04-30] MEDS: LOSARTAN POTASSIUM 50 MG TABLET PO SCH (08:37)
[2021-04-30] MEDS: POLYETHYLENE GLYCOL 3350 17 GM PACKET PO SCH (08:37)
[2021-04-30] MEDS: PSYLLIUM SEED ORANGE SF 5.8 GM/PACKET PO SCH (08:37)
[2021-04-30] MEDS: OxyCODONE HCL 10 MG ER TABLET PO SCH (08:38)
[2021-04-30] MEDS: ENOXAPARIN SODIUM 40 MG/0.4 ML PF SYRINGE SQ SCH (08:38)
[2021-04-30] MEDS: SERTRALINE HCL 100 MG TABLET PO SCH (08:38)
[2021-04-30 09:11] VITALS: BP 155/81
[2021-04-30] MEDS ORDERED: OXYC10TA59 PO (11:29)
[2021-04-30] MEDS ORDERED: OXYC5 PO (11:29)
== END 2021-04-30 12:20 | disposition home health service (06) | DRG 552 ==
LOC: 2WR 17:15
PROVIDERS: ADMIT Physical Medicine & Rehabilitation; ATTEND Physical Medicine & Rehabilitation
DX: M54.16 Radiculopathy, lumbar region (principal); G82.20 Paraplegia, unspecified; E46 Unspecified protein-calorie malnutrition; Z98.890 Other specified postprocedural states; I95.1 Orthostatic hypotension; K59.09 Other constipation; R32 Unspecified urinary incontinence; D64.9 Anemia, unspecified; E78.5 Hyperlipidemia, unspecified; I10 Essential (primary) hypertension
CPT/HCPCS: 73503; 80048; 80053; 85025; 87081; 92507; 92523; 93970; 97110; 97112; 97116; 97150; 97163; 97167; 97530; 97535; 99366; A9575; J1650